=== PATIENT | male | born 1950 | race Caucasian/White ===

== ENCOUNTER 2019-09-22 09:21 | Emergency (ER) | payer OTHER, MEDICARE ==
[~2019-09-22] VITALS: Ht 170.2 cm; Wt 90.3 kg
[2019-09-22 09:35] VITALS: BP 131/96; Ht 170.2 cm; Wt 90.3 kg
== END 2019-09-22 10:01 | disposition home or self-care (01) ==
LOC: ED 09:21
DX: K08.89 Other specified disorders of teeth and supporting structures (principal)